=== PATIENT | male | born 1950 | race Caucasian/White ===

== ENCOUNTER 2020-02-11 11:40 | Emergency (ER) | payer MEDICARE, OTHER ==
[~2020-02-11] VITALS: Ht 185.4 cm; Wt 102.1 kg
--- NOTE | 2020-02-12 17:33 | EKG ---
[facility] [address] [place] [address] Signed Normal sinus rhythm Left anterior fascicular block Abnormal ECG No previous ECGs available Confirmed by DAYNA MELGAR MD ([id number] on 02/12/2020 5:33:35 PM Electronically Signed By: DAYNA MELGAR MD 02/12/20 1733 PATIENT NAME: VIRY MAHER Electrocardiogram DATE OF : 50 PHYSICIAN: DAYNA MELGAR MD REPORT #: [id number] REPORT IS CONFIDENTIAL AND NOT TO BE RELEASED WITHOUT AUTHORIZATION
== END 2020-02-11 15:10 | disposition short-term general hospital (02) ==
LOC: ED 11:40
DX: I71.00 Dissection of unspecified site of aorta (principal)
CPT/HCPCS: 71045; 71275; 72131; 74174; 80053; 83735; 84484; 85025; 85651; 86140; 93005; 93010; 96374; 96375; 96376; 99285-25; J2270; J2405; Q9967; U0003

== ENCOUNTER 2022-08-30 08:56 | Emergency (ER) | payer MEDICARE, OTHER ==
[~2022-08-30] VITALS: Ht 188 cm; Wt 104.3 kg
[2022-08-30] MEDS ORDERED: ASPIRIN81 MG PO (09:43)
[2022-08-30] MEDS ORDERED: LIPITOR10 MG PO (09:44)
[2022-08-30] MEDS ORDERED: METOPROLOL SUCC25 MG PO (09:44)
[2022-08-30] MEDS ORDERED: NORVASC5 MG PO (09:44)
[2022-08-30 11:08] VITALS: BP 140/82
== END 2022-08-30 11:11 | disposition home or self-care (01) ==
LOC: ED 08:56
DX: S01.01XA Laceration without foreign body of scalp, initial encounter (principal); W22.8XXA Striking against or struck by other objects, initial encounter; I10 Essential (primary) hypertension; Z79.899 Other long term (current) drug therapy; Z79.82 Long term (current) use of aspirin; Z23 Encounter for immunization
CPT/HCPCS: 12001; 70450; 90471; 90714; 99283 25

== ENCOUNTER 2023-09-07 19:08 | Emergency (ER) | payer MEDICARE, OTHER ==
[~2023-09-07] VITALS: Ht 188 cm; Wt 104.7 kg
[~2023-09-07 19:08] MED LIST: ASPIRIN81 MG PO; LIPITOR10 MG PO; METOPROLOL SUCC25 MG PO; NORVASC5 MG PO
[2023-09-07 19:59] LABS: BASOPHILS 0.5 % (0-2); EOSINOPHILS 0.7 % (0-6); HEMATOCRIT 47.4 % (35.0-50.0); HEMOGLOBIN 16.3 g/dL (12.0-18.0); LYMPHOCYTES 16.4 % (24-44); MCH 32.7 (27-36); MCHC 34.3 g/dl (30-36); MCV 95.2 fl (81-99); MONOCYTES 8.4 % (0-12); PLATELET COUNT 205 K/uL (140-440); RBC 4.98 M/ul (4.3-5.7); RDW 13.9 (10.5-15.0)
[2023-09-07] MEDS ORDERED: ONDANSETRON ODT8 MG PO (20:31)
[2023-09-07 20:43] VITALS: BP 133/93
[2023-09-07] MEDS ORDERED: ONDANSETRON 4 MG HOME.PACK SL ONE (20:45)
== END 2023-09-07 20:46 | disposition home or self-care (01) ==
LOC: ED 19:08
PROVIDERS: Family Medicine
DX: R14.0 Abdominal distension (gaseous) (principal); K56.7 Ileus, unspecified; I10 Essential (primary) hypertension; Z79.82 Long term (current) use of aspirin; Z79.899 Other long term (current) drug therapy
CPT/HCPCS: 36415; 74018; 85025; 99283